=== PATIENT | female | born 1950 | race Asian ===

== ENCOUNTER 2017-11-22 14:56 | Inpatient (IN) | payer OTHER ==
[~2017-11-22] VITALS: Ht 144.8 cm; Wt 50.3 kg
--- NOTE | ~2017-11-22 | EKG ---
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
[~2017-11-22 14:56] MED LIST: CAPOTEN 25MG TA25 MG PO; LORAZEPAM 0.50.5 MG PO; MECLIZINE 25 MG25 M1; MECLIZINE 25 MG25 M1 PO; MOTION RELIEF25 MG; PRILOSEC 20 MG20 MG; VALIUM5 MG PO; VITAMIN C120 GM; ZOFRAN ODT4 MG PO; [UNRECOGNIZED DRUG - CODE]
[2017-11-22 15:05] VITALS: BP 206/94
[2017-11-22] MEDS ORDERED: CAPTOPRIL 25 MG25 M1 PO (15:23)
[2017-11-22] MEDS ORDERED: CRESTOR5 MG PO (15:23)
[2017-11-22 15:42] LABS: ABSOLUTE NEUTROPHILS 3.1 thou/uL (1.4-8.2); BASOPHILS 0.9 % (0.0-2.0); EOSINOPHILS 3.9 % (0.0-3.0); HEMATOCRIT 39.2 % (37.0-47.0); HEMOGLOBIN 13.3 gm/dL (12.0-15.0); LYMPHOCYTES 31.9 % (24.0-44.0); MCH 33.2 pg (26.0-34.0); MCHC 33.9 g/dL (28.0-37.0); MCV 97.8 fL (80.0-100.0); MONOCYTES 8.2 % (1.0-8.0); PLATELET COUNT 204 thou/uL (150-400); POLYS 55.1 % (36.0-66.0); RBC 4.01 mil/uL (4.20-5.00); RDW 12.7 % (10.5-14.5); WBC 5.6 thou/uL (4.0-11.0)
[2017-11-22 15:44] LABS: CALCIUM 8.7 mg/dL (8.5-10.1); CREATININE 0.8 mg/dL (0.6-1.0); POTASSIUM 3.4 mmol/L (3.5-5.1)
[2017-11-22 21:44] VITALS: BP 137/68
[2017-11-22 22:24] VITALS: BP 167/70; BP 1676/70
[2017-11-22] MEDS ORDERED: CAPOTEN 25MG TA25 MG PO (22:49)
[2017-11-23 04:55] VITALS: BP 171/68
[2017-11-23 06:11] LABS: CALCIUM 8.6 mg/dL (8.5-10.1); CREATININE 0.7 mg/dL (0.6-1.0); POTASSIUM 3.2 mmol/L (3.5-5.1)
[2017-11-23 07:06] VITALS: BP 171/76
[2017-11-23] MEDS ORDERED: ANTIVERT25 MG PO (09:14)
[2017-11-23 13:12] VITALS: BP 171/76
== END 2017-11-23 13:40 | disposition home health service (06) | DRG 392 ==
LOC: ER 14:56 → EROBS 18:31 → 4W 18:31 → ENTRNSPT 11-23 13:36 → 4W 11-23 13:40
PROVIDERS: Emergency Medicine; Hospitalist
DX: R11.2 Nausea with vomiting, unspecified (principal); R42 Dizziness and giddiness; Z91.048 Other nonmedicinal substance allergy status; E78.5 Hyperlipidemia, unspecified; F41.9 Anxiety disorder, unspecified; K21.9 Gastro-esophageal reflux disease without esophagitis; I10 Essential (primary) hypertension; Z79.899 Other long term (current) drug therapy; Z88.8 Allergy status to other drugs, medicaments and biological substances; Z91.040 Latex allergy status
CPT/HCPCS: 10040

== ENCOUNTER 2018-10-31 23:40 | Emergency (ER) | payer OTHER ==
[~2018-10-31] VITALS: Ht 142.2 cm; Wt 53.5 kg
[~2018-10-31 23:40] MED LIST changes: +ANTIVERT25 MG PO; +CAPTOPRIL 25 MG25 M1 PO; +CRESTOR5 MG PO
[2018-11-01] MEDS ORDERED: ANTIVERT25 MG PO (03:48)
[2018-11-01] MEDS ORDERED: ZOFRAN ODT4 MG PO (03:48)
[2018-11-01 04:13] VITALS: BP 138/77
--- NOTE | 2018-11-02 07:48 | EKG ---
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1950 Requested By: Aaron Loving Order Number: [id number] MD: Franky Mehta Measurements Intervals [place] Rate: 71 P: [place]: QRS: 7 QRSD: 73 T: 35 QT: 398 QTc: 433 Interpretive Statements Sinus rhythm Abnormal R-wave progression, early transition Compared to ECG 11/22/2017 15:05:32 Early R-wave progression is present Electronically Signed On 11-02-2018 7:48:06 CDT by Franky Mehta [email or web address] ��������������������������������������������� <ELECTRONICALLY SIGNED> ���������������������������������������� By: Franky Mehta MD, [facility] ��������������������������������������������� 11/02/18 0748 [id number] Franky Mehta MD, [facility] /EPI
== END 2018-11-01 04:15 | disposition home or self-care (01) ==
LOC: ER 23:40
DX: R42 Dizziness and giddiness (principal); F41.9 Anxiety disorder, unspecified; K21.9 Gastro-esophageal reflux disease without esophagitis; I10 Essential (primary) hypertension; E78.5 Hyperlipidemia, unspecified; Z98.890 Other specified postprocedural states; Z88.8 Allergy status to other drugs, medicaments and biological substances; Z91.040 Latex allergy status; Z86.73 Personal history of transient ischemic attack (TIA), and cerebral infarction without residual deficits

== ENCOUNTER 2019-05-22 21:25 | Emergency (ER) | payer OTHER ==
[~2019-05-22] VITALS: Ht 142.2 cm; Wt 49.9 kg
[2019-05-22 22:49] LABS: ABSOLUTE NEUTROPHILS 2.1 thou/uL (1.4-8.2); BASOPHILS 0.7 % (0.0-2.0); EOSINOPHILS 4.6 % (0.0-3.0); HEMATOCRIT 35.8 % (37.0-47.0); HEMOGLOBIN 11.8 gm/dL (12.0-15.0); LYMPHOCYTES 48.7 % (24.0-44.0); MCH 32.8 pg (26.0-34.0); MCHC 32.9 g/dL (28.0-37.0); MCV 99.7 fL (80.0-100.0); MONOCYTES 9.6 % (1.0-8.0); PLATELET COUNT 207 thou/uL (150-400); POLYS 36.4 % (36.0-66.0); RBC 3.59 mil/uL (4.20-5.00); RDW 12.6 % (10.5-14.5); WBC 5.8 thou/uL (4.0-11.0)
[2019-05-22 22:50] LABS: CREATININE 0.8 mg/dL (0.6-1.0); POTASSIUM 3.1 mmol/L (3.5-5.1)
[2019-05-22 22:56] LABS: ALBUMIN 3.2 g/dL (3.4-5.0); TOTAL BILIRUBIN 0.2 mg/dL (<0.1-1.0); TOTAL PROTEIN 7.1 g/dL (6.4-8.2)
[2019-05-22 23:14] LABS: URINE BILIRUBIN NEGATIVE (Negative); URINE BLOOD 1+ (Negative); URINE CLARITY CLEAR; URINE COLOR YELLOW; URINE GLUCOSE-RANDOM* NEGATIVE (Negative); URINE KETONES NEGATIVE (Negative); URINE NITRITE-REFLEX NEGATIVE (Negative); URINE PROTEIN (DIPSTICK) NEGATIVE (Negative); URINE SPECIFIC GRAVITY 1.015 (1.005-1.035); URINE UROBILINOGEN 0.2 E.U./dl (0.2-1.0)
[2019-05-22 23:15] LABS: URINE LEUKOCYTES-REFLEX 1+ (Negative)
[2019-05-22 23:26] LABS: BACTERIA-REFLEX 1-9 Few /HPF (None Seen); CASTS None Seen /LPF (None Seen); CRYSTALS None Seen /LPF (None Seen); SQUAMOUS 0-3 Few /LPF (0-3); URINE RBC 3-10 Few /HPF (0-2); URINE WBC-REFLEX 6-15 Few /HPF (0-5)
[2019-05-23] MEDS ORDERED: BENTYL 10 MG CA10 M1 PO (00:58)
[2019-05-23] MEDS ORDERED: ZOFRAN ODT4 MG PO (00:58)
[2019-05-23 01:24] VITALS: BP 147/65
== END 2019-05-23 01:25 | disposition home or self-care (01) ==
LOC: ER 21:25
PROVIDERS: Emergency Medicine
DX: K52.9 Noninfective gastroenteritis and colitis, unspecified (principal); I10 Essential (primary) hypertension; K21.9 Gastro-esophageal reflux disease without esophagitis; E78.5 Hyperlipidemia, unspecified; F32.9 Major depressive disorder, single episode, unspecified; Z98.890 Other specified postprocedural states; Z91.040 Latex allergy status; Z88.8 Allergy status to other drugs, medicaments and biological substances